=== PATIENT | male | born 1985 | race Caucasian/White ===

== ENCOUNTER 2017-05-21 12:27 | Emergency (ER) | payer BC ==
[2017-05-21 13:41] VITALS: BP 154/92
== END 2017-05-21 13:41 | disposition home or self-care (01) ==
LOC: ED 12:27
DX: S62.631A Displaced fracture of distal phalanx of left index finger, initial encounter for closed fracture (principal); W22.8XXA Striking against or struck by other objects, initial encounter; Y93.89 Activity, other specified; Y92.89 Other specified places as the place of occurrence of the external cause; Y99.8 Other external cause status

== ENCOUNTER 2019-06-10 15:56 | Emergency (ER) | payer OTHER ==
[~2019-06-10] VITALS: Ht 170.2 cm; Wt 77.6 kg
[2019-06-10 16:04] VITALS: Ht 170.2 cm; Wt 77.6 kg
[2019-06-10 17:48] VITALS: BP 122/77
== END 2019-06-10 17:48 | disposition home or self-care (01) ==
LOC: ED 15:56
DX: S89.81XA Other specified injuries of right lower leg, initial encounter (principal); W50.1XXA Accidental kick by another person, initial encounter; Y93.66 Activity, soccer; Y92.89 Other specified places as the place of occurrence of the external cause; Y99.8 Other external cause status
CPT/HCPCS: J1885